=== PATIENT | female | born 1975 | race Caucasian/White ===

== ENCOUNTER 2023-12-29 11:47 | Outpatient (CLI) | payer BC | END 2023-12-29 11:48 | disposition home or self-care (01) | LOC: SCSRAD 11:47 | PROVIDERS: ATTEND Family Medicine | DX: M25.472 Effusion, left ankle (principal); M77.42 Metatarsalgia, left foot ==

== ENCOUNTER 2024-02-06 21:06 | Emergency (ER) | payer BC ==
[2024-02-06] MEDS ORDERED: HYDROmorphone 0.5 MG/0.5 ML SYRINGE ONE (21:30)
[2024-02-06] MEDS ORDERED: Boostrix 0.5 ML (Tdap) VIAL (>/=7 yrs of age) ONE (21:30)
[2024-02-06] MEDS ORDERED: fentaNYL 50 mcg/mL 1 mL Vial ONE (21:56)
[2024-02-06] MEDS ORDERED: Lorazepam 2 MG/ML VIAL ONE ×2 (21:56→23:48)
[2024-02-06] MEDS ORDERED: Lidocaine 1% PF 5 ML VIAL ONE (22:18)
[2024-02-07] MEDS ORDERED: Lidocaine 1% PF 5 ML VIAL ONE (00:11)
[2024-02-07] MEDS ORDERED: fentaNYL 50 mcg/mL 1 mL Vial ONE (00:37)
[2024-02-07] MEDS ORDERED: Bacitracin 1 PK ONE (01:55)
== END 2024-02-07 02:13 | disposition home or self-care (01) ==
LOC: ERS 21:06
DX: S61.011A Laceration without foreign body of right thumb without damage to nail, initial encounter (principal); S51.811A Laceration without foreign body of right forearm, initial encounter; F17.210 Nicotine dependence, cigarettes, uncomplicated; Z23 Encounter for immunization; W13.4XXA Fall from, out of or through window, initial encounter
CPT/HCPCS: 12004; 90471; 90715; 96374; 96375; 96376; J1171; J2060; J3010

== ENCOUNTER 2024-02-15 11:34 | Inpatient (IN) | payer BC ==
[2024-02-12 15:31] VITALS: BMI 24.3
[2024-02-15 12:52] LABS: #Basophils Less than 0.03 10x3/uL (0.0-0.2); %Basophils 0.2 % (0.0-1.0); %Eosinophils 0.5 % (0.0-10.0); %Lymphocytes 26.6 % (21.0-51.0); %Monocytes 6.5 % (0.0-10.0); %Neutrophils 65.7 % (42.0-75.0); Hematocrit 39.3 % (36.0-47.0); Hemoglobin 13.4 g/dL (12.0-16.0); Mean Corpuscular HGB CONC 34.1 g/dL (32.0-36.0); Mean Corpuscular Hemoglobin 31.5 pg (27.0-31.0); Mean Corpuscular Volume 92.3 fL (78.0-98.0); Mean Platelet Volume 9.8 fL (7.4-10.4); Platelet Count 288 10x3/uL (130-400); RBC Distribution Width 12.6 % (11.5-14.5); Red Blood Cell (RBC) Count 4.26 mill/uL (4.20-5.40)
[2024-02-15] MEDS ORDERED: Midazolam HCl 2 mg/2 ml Vial ONE ×2 (13:25→14:12)
[2024-02-15] MEDS ORDERED: fentaNYL PF 100 MCG/2 ML SYRINGE ONE (13:25)
[2024-02-15] MEDS ORDERED: PROPOFOL 20 ML ONE (13:25)
[2024-02-15] MEDS ORDERED: Lidocaine 1% PF 5 ML VIAL ONE (13:25)
[2024-02-15] MEDS ORDERED: Dexamethasone 20 MG/5 ML VIAL ONE (13:25)
[2024-02-15] MEDS ORDERED: Ondansetron PF 4 MG/2 ML Vial ONE (13:25)
[2024-02-15] MEDS ORDERED: Betamet Acet/Betamet Na Ph 30 MG/5 ML VIAL ONE (14:02)
[2024-02-15] MEDS ORDERED: Bupivacaine PF 0.5% 30 ML VIAL ONE ×3 (14:03→14:51)
[2024-02-15] MEDS ORDERED: Bacitracin Zinc Ointment 30 gm TUBE ONE (14:05)
[2024-02-15] MEDS ORDERED: Lidocaine 2% 6 ML (Jelly) SYR ONE (14:10)
[2024-02-15] MEDS ORDERED: CEFAZOLIN 2 GM VIAL ONE (14:14)
[2024-02-15] MEDS ORDERED: Sodium Chloride 0.9% 100 ML ONE (14:14)
[2024-02-15] MEDS ORDERED: Rocuronium Bromide 10 MG/ML (10ML VIAL) ONE (14:38)
[2024-02-15] MEDS ORDERED: PHENYLEPHRINE-NS 100 MCG/ML 10 ML SYRINGE ONE ×2 (14:44→17:45)
[2024-02-15] MEDS ORDERED: SUGAMMADEX SODIUM 200 MG/2 ML VIAL ONE (15:13)
[2024-02-15] MEDS ORDERED: Ketorolac Tromethamine 30 MG (1 mL) VIAL ONE (15:13)
[2024-02-15] MEDS ORDERED: Heparin 10,000 UNITS/ 10 ML VIAL ONE ×2 (16:37→17:18)
[2024-02-15] MEDS ORDERED: Hetastarch 6% 500 ML 500 ML ONE ×2 (16:38→19:30)
[2024-02-15] MEDS ORDERED: Lidocaine 2% PF 5 ML VIAL ONE (16:41)
[2024-02-15] MEDS ORDERED: Vecuronium 10 MG VIAL ONE (17:50)
[2024-02-15] MEDS ORDERED: fentaNYL 50 mcg/mL 1 mL Vial ONE ×3 (17:52→20:41)
[2024-02-15] MEDS ORDERED: Bisacodyl 10 MG SUPP PR PRN (20:19)
[2024-02-15] MEDS ORDERED: Ondansetron PF 4 MG/2 ML Vial IVP PRN (20:19)
[2024-02-15] MEDS ORDERED: Promethazine HCl 25 MG/ML VIAL IM PRN (20:19)
[2024-02-15] MEDS ORDERED: Meperidine HCl/PF 25 MG (1 mL) VIAL IM PRN (20:21)
[2024-02-15] MEDS ORDERED: Communication Order-Pharmacy FS SCH (20:30)
[2024-02-15] MEDS ORDERED: Morphine 4 MG/ML VIAL ONE (20:57)
[2024-02-15] MEDS: HYDROcodone/Acetaminophen 5/325 mg Tablet PO PRN (21:52)
[2024-02-15] MEDS: CEFAZOLIN 2 GM in Sodium Chloride 0.9% 100 ML IVPB SCH (22:49)
[2024-02-15] MEDS: Aspirin 81 mg Enteric Coated Tablet PO SCH (22:50)
[2024-02-15] MEDS: Morphine 4 MG/ML VIAL SLOW IVP PRN (23:02)
[2024-02-16] MEDS: TETANUS, DIPHTHERIA TOX,ADULT (TDVAX) 0.5 ML VIAL IM ONE (01:51)
[2024-02-16] MEDS: Hetastarch 6% 500 ML 500 ML IVPB SCH (02:06)
[2024-02-16] MEDS ORDERED: busPIRone HCl 5 MG TAB PO PRN (05:10)
[2024-02-16] MEDS: BuPROPion 100 MG SR.TAB PO SCH (08:14)
[2024-02-16] MEDS: Aspirin 81 mg Enteric Coated Tablet PO SCH (08:14)
[2024-02-16] MEDS: traMADol HCl 50 MG TAB PO PRN (08:14)
[2024-02-16] MEDS: Gabapentin 300 MG CAP PO SCH (20:05)
[2024-02-17] MEDS: Acetaminophen 325 MG TAB PO PRN (09:11)
[2024-02-17 19:03] LABS: #Basophils Less than 0.03 10x3/uL (0.0-0.2); %Basophils 0.3 % (0.0-1.0); %Eosinophils 0.9 % (0.0-10.0); %Lymphocytes 35.4 % (21.0-51.0); %Monocytes 6.1 % (0.0-10.0); %Neutrophils 57.1 % (42.0-75.0); Hematocrit 31.8 % (36.0-47.0); Hemoglobin 10.7 g/dL (12.0-16.0); Mean Corpuscular HGB CONC 33.6 g/dL (32.0-36.0); Mean Corpuscular Hemoglobin 31.7 pg (27.0-31.0); Mean Corpuscular Volume 94.1 fL (78.0-98.0); Mean Platelet Volume 9.9 fL (7.4-10.4); Platelet Count 241 10x3/uL (130-400); RBC Distribution Width 12.3 % (11.5-14.5); Red Blood Cell (RBC) Count 3.38 mill/uL (4.20-5.40)
[2024-02-18 07:48] VITALS: BP 126/79; TEMP 98.5
== END 2024-02-18 11:00 | disposition home or self-care (01) | DRG 41 ==
LOC: SDC 11:34 → SURG A 21:40 → OBSVTOIN 02-17 16:04
PROVIDERS: ADMIT Orthopaedic Surgery Hand Surgery; ATTEND Orthopaedic Surgery Hand Surgery
PROC: 01Q60ZZ Repair Radial Nerve, Open Approach (ICD-10-PCS; principal; 2024-02-15)
PROC: 0LQ50ZZ Repair Right Lower Arm and Wrist Tendon, Open Approach (ICD-10-PCS; 2024-02-15)
PROC: 0RBU0ZZ Excision of Right Metacarpophalangeal Joint, Open Approach (ICD-10-PCS; 2024-02-15)
PROC: 0L850ZZ Division of Right Lower Arm and Wrist Tendon, Open Approach (ICD-10-PCS; 2024-02-15)
DX: S54.21XA Injury of radial nerve at forearm level, right arm, initial encounter (principal); S56.221A Laceration of other flexor muscle, fascia and tendon at forearm level, right arm, initial encounter; S66.221A Laceration of extensor muscle, fascia and tendon of right thumb at wrist and hand level, initial encounter; S56.521A Laceration of other extensor muscle, fascia and tendon at forearm level, right arm, initial encounter; X58.XXXA Exposure to other specified factors, initial encounter; F41.9 Anxiety disorder, unspecified; F32.A Depression, unspecified; Z90.49 Acquired absence of other specified parts of digestive tract; Z98.51 Tubal ligation status; Z87.891 Personal history of nicotine dependence; Z79.899 Other long term (current) drug therapy
CPT/HCPCS: 36415; 85025; J0665; J0702; J1100; J1644; J1885; J2250; J2272; J2405; J2704; J3010